=== PATIENT | female | born 1930 | race Caucasian/White ===

== ENCOUNTER → 2016-12-11 | Outpatient (CLI) | payer MEDICARE, BC ==
[~2016-12-11] MED LIST: ADVAIR 250/5028 PUFF IN; AEROECLIPSE NEB1 DEV IN; AMIODARONE HYD200 MG PO; AMIODARONE200 MG PO; ASPIRIN 325MG325 MG PO; ASPIRIN 81MG TA81 MG PO; ATIVAN GENERIC0.5 MG PO; ATROVENT INH; 114 GM IN; CLINDAMYCIN300 MG PO; COUMADIN 5MG TAB5 MG PO; CRESTOR5 MG PO; DOXYCYCLINE HY100 M7 PO; DULCOLAX5 MG PO; KEFLEX 500MG.500 MG PO; LEVAQUIN500 MG PO; LISINOPRIL10 MG PO; LOVENOX 8080 MG/0.8 SC; MEDROL 4MG. DOSE4 MG PO; MELOXICAM15 MG PO; METOPROLOL SUCC50 M1 PO; METOPROLOL SUCC50 M2 PO; MULTIVITAMIN1 TA2 PO; NITROGLYCER0.2 MG/H1 TD; NITROGLYCER0.2 MG/HR TD; OMNICEF 300 MG300 MG PO; PERCOCET 10 MG1 EACH PO; PERCOCET1 TAB PO; PLAVIX75 MG PO; PROTONIX 40MG T40 MG PO; ULTRAM50 MG PO; VIA IN; ZITHROMAX Z PA250 MG PO; [UNRECOGNIZED DRUG - OTHER] IN
--- NOTE | 2016-12-11 14:15 | RADIOLOGY REPORT PS360 ---
[id number] VIEWS HISTORY: RT SHOULDER PAIN ORDERING PHYSICIAN: KARELY GREER APRN PATIENT AGE: 86 years COMPARISON: None FINDINGS: The glenohumeral joint and proximal humerus has an unremarkable appearance. There is some cortical lobulation of the distal aspect of the scapula inferiorly as well as a double density over the mid aspect of the scapula on the frontal view. Scapular fracture either acute or chronic is considered. There are old right rib fractures involving the right fourth and sixth ribs. IMPRESSION: 1. Unremarkable glenohumeral joint. 2. Suspect right scapular fracture age-indeterminate. Please correlate clinically. CT may be of further value if clinically warranted
== END ==
LOC: RAD 11:14
DX: M25.511 Pain in right shoulder (principal)